=== PATIENT | male | born 1990 | race African-American/Black ===

== ENCOUNTER 2022-04-16 17:25 | Emergency (ER) | payer MEDICAID ==
[~2022-04-16] VITALS: Ht 198.1 cm; Wt 100.0 kg
[2022-04-16 17:31] VITALS: BP 156/109
[2022-04-16] MEDS ORDERED: ACET-2708 MT (19:51)
[2022-04-16] MEDS ORDERED: LIDO700A15 TP (19:51)
== END 2022-04-16 20:14 | disposition home or self-care (01) ==
LOC: ER 17:25
DX: M54.9 Dorsalgia, unspecified (principal); G89.29 Other chronic pain
CPT/HCPCS: 99281

== ENCOUNTER 2023-03-03 08:54 | Emergency (ER) | payer MEDICAID ==
[~2023-03-03] VITALS: Ht 198.1 cm; Wt 102.0 kg
[~2023-03-03 08:54] MED LIST: ACET-2708 MT; LIDO700A15 TP
[2023-03-03 09:01] VITALS: O2SAT 100
[2023-03-03 09:39] LABS: BASOPHILS % 1.1 % (0.0-2.0); EOSINOPHILS % 10.1 % (0.0-5.0); LYMPHOCYTES % 38.7 % (20.0-50.0); MEAN CORPUSCULAR HEMOGLOBIN 27.9 pg (28.0-32.0); MEAN CORPUSCULAR HGB CONC 31.9 g/dL (31.0-37.0); MEAN CORPUSCULAR VOLUME 87.5 fL (80.0-94.0); MEAN PLATELET VOLUME 7.3 fl (7.4-10.4); NEUTROPHILS % 45.1 % (40.0-76.0); PLATELET 292 x1000/uL (130-400); RED BLOOD CELL COUNT 5.03 mill/uL (4.7-6.1); RED CELL DISTRIBUTION WIDTH 11.6 % (11.6-14.6); WHITE BLOOD COUNT 5.5 x1000/uL (4.5-11.0)
[2023-03-03 09:55] LABS: CLARITY URINE CLEAR (CLEAR); COLOR URINE YELLOW (YELLOW); GLUCOSE URINE NEGATIVE (NEGATIVE); KETONES URINE NEGATIVE (NEGATIVE); LEUKOCYTE ESTERASE URINE NEGATIVE (NEGATIVE); NITRITE URINE NEGATIVE (NEGATIVE); OCCULT BLOOD URINE NEGATIVE (NEGATIVE); PROTEIN URINE NEGATIVE (NEGATIVE); SPECIFIC GRAVITY URINE 1.017 (1.005-1.030); UROBILINOGEN URINE 0.2 E.U./dL (0.2-1.0)
[2023-03-03 10:03] LABS: ALANINE AMINOTRANSFERASE 74 IU/L (10-49); ALBUMIN 4.5 g/dL (3.2-4.8); ASPARTATE AMINOTRANSFERASE 32 IU/L (<34); BILIRUBIN TOTAL 0.5 mg/dL (0.1-1.0); CALCIUM 9.5 mg/dL (8.7-10.4); CARBON DIOXIDE 30 mEq/L (21-32); CHLORIDE 105 mEq/L (98-107); CREATININE 0.9 mg/dL (0.6-1.3); GLUCOSE 93 mg/dL (70-105); POTASSIUM 4.4 mEq/L (3.5-5.1); SODIUM 140 mEq/L (136-145); UREA NITROGEN BLOOD 9 mg/dL (9-23)
[2023-03-03 10:44] LABS: TROPONIN I HIGH SENSITIVITY < 4 ng/L (3.0-53)
[2023-03-03] MEDS ORDERED: ALBU6.7H15 INH (10:54)
[2023-03-03] MEDS ORDERED: FAMO10TA41 MT (10:56)
[2023-03-03 11:16] VITALS: BP 139/92; PULSE 88; RESP 14; TEMP 98.1
== END 2023-03-03 11:18 | disposition home or self-care (01) ==
LOC: ER 08:54
DX: R05.9 Cough, unspecified (principal); R10.13 Epigastric pain; J45.909 Unspecified asthma, uncomplicated; Z88.6 Allergy status to analgesic agent
CPT/HCPCS: 80053; 81003; 83690; 85025; 84484; 36415; 71045; 93005; 99285; Z7610